=== PATIENT | male | born 1995 | race Caucasian/White ===

== ENCOUNTER 2017-01-03 19:26 | Emergency (ER) | payer BC ==
[2017-01-03 20:43] VITALS: BP 115/63
[2017-01-03] MEDS ORDERED: Amoxicillin/Clavulanate TAB* 875 MG PO ONE (21:35)
--- NOTE | 2017-01-03 21:43 | UC ---
Skin Complaint HPI - HPI Summary HPI Summary: RIGHT THIRD FINGER SWELLING FOR THREE DAYS PAIN AND REDNESS AROUND NAIL BED. HAD HANGNAIL AND BIT IT OFF. - History of Current Complaint Chief Complaint: UCUpperExtremity Time Seen by Provider: 01/03/17 21:01 Stated Complaint: RT MIDDLE FINGER SWELLING-POSS INFECTION Hx Obtained From: Patient Onset/Duration: Sudden Onset, Lasting Days, Still Present Skin Exposure Onset/Duration: Days Ago Onset Severity: Mild Current Severity: Moderate Location: Discrete - RIGHT THIRD FINGER Character: Swelling, Redness, Raised, Painful Aggravating: Nothing Alleviating: Nothing Associated Signs & Symptoms: Positive: Tenderness. Negative: Fever, Drainage, Bruising, Red Streaks Related History: Trauma - BIT HANGNAIL - Allergy/Home Medications Allergies/Adverse Reactions: Allergies Allergy/AdvReac Type Severity Reaction Status Date / Time No Known Allergies Allergy Verified 01/03/17 20:44 Review of Systems Skin: Other - REDNESS SWELLING PAIN RIGHT 3RD FINGER CUTICLE Eyes: Negative ENT: Negative Respiratory: Negative Cardiovascular: Negative Gastrointestinal: Negative Genitourinary: Negative Motor: Negative Neurovascular: Negative Musculoskeletal: Negative Neurological: Negative Psychological: Negative All Other Systems Reviewed And Are Negative: Yes PMH/Surg Hx/FS Hx/Imm Hx Previously Healthy: Yes - Surgical History Surgical History: None - Family History Known Family History: Negative: Diabetes - Social History Occupation: Employed Full-time Lives: With Family Alcohol Use: Weekly Substance Use Type: None Smoking Status (MU): Never Smoked Tobacco Physical Exam Triage Information Reviewed: Yes Appearance: Well-Appearing, Well-Nourished, Pain Distress - MILD Vital Signs: Initial Vital Signs Temp 98.6 F 01/03/17 20:38 Pulse 76 01/03/17 20:38 Resp 16 01/03/17 20:38 BP 115/63 01/03/17 20:38 Pulse Ox 100 01/03/17 20:38 Vital Signs Reviewed: Yes Eye Exam: Normal ENT Exam: Normal ENT: Positive: Normal ENT inspection, Hearing grossly normal, TMs normal Dental Exam: Normal Neck exam: Normal Neck: Positive: Supple, Nontender Respiratory Exam: Normal Respiratory: Positive: Chest non-tender, Lungs clear, Normal breath sounds, No respiratory distress, No accessory muscle use Cardiovascular Exam: Normal Cardiovascular: Positive: RRR, No Murmur, Pulses Normal Abdominal Exam: Normal Abdomen Description: Positive: Nontender, No Organomegaly Musculoskeletal Exam: Normal Musculoskeletal: Positive: Strength Intact, ROM Intact, Edema @ - RIGHT THIRD FINGER PARONYCHIA Neurological Exam: Normal Psychological Exam: Normal Skin Exam: Other - RIGHT THIRD FINGER PARONYCHIA Course/Dx - Differential Diagnoses - Skin Complaint Differential Diagnoses: Abscess, Cellulitis - Diagnoses Provider Diagnoses: RIGHT THIRD FINGER PARONYCHIA Discharge - Discharge Plan Condition: Stable Disposition: HOME Prescriptions: Amoxicillin/Clavulanate TAB* [Augmentin TAB 875*] 875 mg PO BID #20 tab Patient Education Materials: Paronychia (ED) Referrals: Stephanie Reaves MD [Primary Care Provider] -
== END 2017-01-03 21:48 | disposition home or self-care (01) ==
LOC: UCCORT 19:26
DX: L03.011 Cellulitis of right finger (principal)
CPT/HCPCS: 87070; 87205; 87640; 87641; 99212; A9270-GY; G0463

== ENCOUNTER 2017-03-12 16:21 | Emergency (ER) | payer BC ==
[2017-03-12 16:32] VITALS: BP 127/59
--- NOTE | 2017-03-12 16:39 | UC ---
Skin Complaint HPI - HPI Summary HPI Summary: 21 YEAR OLD MALE PRESENTS WITH COMPLAINS OF RASH ON HER PENIS. - History of Current Complaint Chief Complaint: UCSkin Time Seen by Provider: 03/12/17 16:28 Stated Complaint: SKIN COMPLAINT - Allergy/Home Medications Allergies/Adverse Reactions: Allergies Allergy/AdvReac Type Severity Reaction Status Date / Time No Known Allergies Allergy Verified 03/12/17 16:32 Review of Systems Constitutional: Negative Skin: Rash, Other - ON PENIS Eyes: Negative ENT: Negative Respiratory: Negative Cardiovascular: Negative Gastrointestinal: Negative Genitourinary: Negative Motor: Negative Neurovascular: Negative Musculoskeletal: Negative Neurological: Negative Psychological: Negative All Other Systems Reviewed And Are Negative: Yes PMH/Surg Hx/FS Hx/Imm Hx - Surgical History Surgical History: None - Family History Known Family History: Negative: Diabetes - Social History Alcohol Use: Weekly Alcohol Amount: weekends Substance Use Type: None Smoking Status (MU): Never Smoked Tobacco Physical Exam Triage Information Reviewed: Yes Vital Signs: Initial Vital Signs Temp 37.1 C 03/12/17 16:26 Pulse 77 03/12/17 16:26 Resp 16 03/12/17 16:26 BP 127/59 03/12/17 16:26 Pulse Ox 98 03/12/17 16:26 Eye Exam: Normal ENT Exam: Normal Dental Exam: Normal Neck exam: Normal Neck: Positive: 1 Respiratory Exam: Normal Cardiovascular Exam: Normal Abdominal Exam: Normal Musculoskeletal Exam: Normal Neurological Exam: Normal Psychological Exam: Normal Skin: Positive: rashes - ON PENIS Course/Dx - Diagnoses Provider Diagnoses: RASH ON PENIS Discharge - Discharge Plan Condition: Stable Disposition: HOME Prescriptions: Clotrimazole/Betamethasone* [Lotrisone Cream*] 1 applic TOPICAL BID #45 gm Patient Education Materials: Acute Rash (ED), Scrotal Pain (ED) Referrals: Stephanie Reaves MD [Primary Care Provider] -
[2017-03-13 10:48] LABS: Syphilis Index < 0.1 Index
[2017-03-14 11:58] LABS: Herpes Simplex Virus I IgG AB Negative (Negative); Herpes Simplex Virus II IgG AB Negative (Negative)
[2017-03-14 18:59] LABS: Hepatitis C RNA Quantitative Undetected IU/mL (Undetected)
== END 2017-03-12 17:42 | disposition home or self-care (01) ==
LOC: UCCORT 16:21
DX: R21 Rash and other nonspecific skin eruption (principal)
CPT/HCPCS: 36415; 81003; 86592; 86695; 86696; 86703; 87102; 87340; 87491; 87522; 87591; 99212; G0463

== ENCOUNTER 2017-03-30 13:31 | Emergency (ER) | payer BC ==
[2017-03-30 13:43] VITALS: BP 143/94
--- NOTE | 2017-03-30 14:08 | UC ---
Headache HPI - HPI Summary HPI Summary: 21 yo male has had three incapacitating headaches in the past 4 days They last 10-20 minutes and are 10/10 They all are sudden onset When he gets them he becomes diaphoretic and has nausea He closes his eyes/grabs his head and rolls on the floor The first one was post coital The second one was while wt lifting Today's occurred this AM while at rest The headaches are left occipital He had HAs as a kid (diagnosed with migraines/but those HAs were never like this ) - History Of Current Complaint Chief Complaint: UCHeadache Stated Complaint: SUDDEN SEVERE HEADACHES Time Seen by Provider: 03/30/17 13:43 Hx Obtained From: Patient Onset/Duration: Sudden Onset, Lasting Minutes Onset Of Symptoms: Sudden Initially Headache Was: "Worst Headache Ever", Initial Pain Scale(0-10)= - 10 Currently Pain Is: Mild Timing: Intermittent, Lasting:, Hours Character: Throbbing Location of Headache: Occipital - left Aggravating Factor: Exertion - first 2 headaches Associated Signs And Symptoms: Positive: Nausea. Negative: Dizziness, Seizure, Vomiting, Sinus Pressure, Fever, Neck Pain, Neck Stiffness, Decreased LOC, Visual Changes - Allergies/Home Medications Allergies/Adverse Reactions: Allergies Allergy/AdvReac Type Severity Reaction Status Date / Time No Known Allergies Allergy Verified 03/30/17 13:37 Home Medications: Home Medications [id number]-[id number] [Excedrin Migraine] 2 tab PO DAILY PRN 03/30/17 [ History Confirmed 03/30/17] PMH/Surg Hx/FS Hx/Imm Hx Previously Healthy: Yes - Surgical History Surgical History: None - Family History Known Family History: Positive: Hypertension, Other - mom with migraines Negative: Diabetes - Social History Alcohol Use: Weekly Alcohol Amount: weekends Substance Use Type: None Smoking Status (MU): Never Smoked Tobacco Review of Systems Constitutional: Negative Skin: Negative Eyes: Negative ENT: Negative Respiratory: Negative Cardiovascular: Negative Gastrointestinal: Nausea Genitourinary: Negative Motor: Negative Neurovascular: Negative Musculoskeletal: Negative Neurological: Headache Psychological: Negative All Other Systems Reviewed And Are Negative: Yes Physical Exam Triage Information Reviewed: Yes Appearance: Well-Appearing, No Pain Distress, Well-Nourished Vital Signs: Initial Vital Signs Temp 98.9 F 03/30/17 13:38 Pulse 71 03/30/17 13:38 Resp 16 03/30/17 13:38 BP 143/94 03/30/17 13:38 Pulse Ox 98 03/30/17 13:38 Vital Signs Reviewed: Yes Eyes: Positive: Conjunctiva Clear, Other: - eomi/perrl/fundi benign ENT: Positive: Hearing grossly normal. Negative: Nasal congestion, Nasal drainage, Tonsillar exudate, Trismus, Muffled/hoarse voice Dental: Negative: Abscess @ Neck: Positive: Supple, Nontender, No Lymphadenopathy Respiratory: Positive: Lungs clear, Normal breath sounds, No respiratory distress, No accessory muscle use Cardiovascular: Positive: RRR, No Murmur Musculoskeletal: Positive: ROM Intact, No Edema Neurological: Positive: Alert, Muscle Tone Normal, Other: - GCS 15/15, cn 2-12 intact, normal gait, DTRs equal bilaterally Psychological Exam: Normal Skin Exam: Normal Headache Course/Dx - Course Course Of Treatment: I informed patient that due to the severe pain and sudden onset of his HAs that be would be better served getting this worked up at an ER. It is also worrisome that two of the HAs occurred while straining. He delined EMS transfer and an AMA form was signed. He states he will go directly there via POV. I spoke with Penny Zuniga ARMED SECURITY PROFESSIONAL at [facility] and she accepts patient - Differential Dx/Diagnosis Provider Diagnoses: HEADACHE OF UNCERTAIN CAUSE Discharge - Discharge Plan Condition: Guarded Disposition: AGAINST MEDICAL ADVICE Discharge Disposition Comment: Transferred to [facility] but the patient refused EMS transport Referrals: Stephanie Reaves MD [Primary Care Provider] -
== END 2017-03-30 13:56 | disposition left against medical advice (07) ==
LOC: UCCORT 13:31
DX: R51 Headache (principal); R11.0 Nausea
CPT/HCPCS: 99212; G0463